=== PATIENT | female | born 1955 | race Caucasian/White ===

== ENCOUNTER 2017-08-18 11:19 | Outpatient (CLI) | payer OTHER | END 2017-08-18 11:20 | disposition home or self-care (01) | LOC: EKG 11:19 | PROVIDERS: ATTEND Internal Medicine | DX: I10 Essential (primary) hypertension (principal) | CPT/HCPCS: 93005; 93010 ==

== ENCOUNTER 2022-08-14 15:19 | Emergency (ER) | payer OTHER | END 2022-08-14 19:13 | disposition home or self-care (01) | LOC: ERS 15:19 | DX: M25.561 Pain in right knee (principal) ==

== ENCOUNTER 2022-10-08 14:32 | Outpatient (CLI) | payer OTHER | END 2022-10-08 14:33 | disposition home or self-care (01) | LOC: BICMAMMO 14:32 | PROVIDERS: ATTEND Family Medicine | DX: Z12.31 Encounter for screening mammogram for malignant neoplasm of breast (principal); Z13.820 Encounter for screening for osteoporosis; M85.89 Other specified disorders of bone density and structure, multiple sites; Z78.0 Asymptomatic menopausal state | CPT/HCPCS: 77063; 77067; 77080 ==

== ENCOUNTER 2023-03-07 10:29 | Emergency (ER) | payer OTHER | END 2023-03-07 12:21 | disposition home or self-care (01) | LOC: ERS 10:29 | DX: S83.92XA Sprain of unspecified site of left knee, initial encounter (principal); I10 Essential (primary) hypertension; W01.0XXA Fall on same level from slipping, tripping and stumbling without subsequent striking against object, initial encounter ==

== ENCOUNTER 2024-08-09 09:11 | Outpatient (CLI) | payer OTHER | END 2024-08-09 09:12 | disposition home or self-care (01) | LOC: BICRAD 09:11 | PROVIDERS: ATTEND Family Medicine | DX: M25.562 Pain in left knee (principal); M17.12 Unilateral primary osteoarthritis, left knee ==